=== PATIENT | female | born 1995 | race Caucasian/White ===

== ENCOUNTER → 2023-08-20 07:39 | Outpatient (REF) | payer BC, SELFPAY | LOC: PNTC 07:39 | PROVIDERS: ATTENDING PHYSICIAN Obstetrics & Gynecology | DX: O09.519 Supervision of elderly primigravida, unspecified trimester (principal); O99.280 Endocrine, nutritional and metabolic diseases complicating pregnancy, unspecified trimester; O99.212 Obesity complicating pregnancy, second trimester | CPT/HCPCS: 36415; 76801; 76813 ==

== ENCOUNTER → 2023-09-16 16:32 | Outpatient (REF) | payer BC, SELFPAY | LOC: PNTC 16:32 | PROVIDERS: ATTENDING PHYSICIAN Obstetrics & Gynecology | DX: O99.210 Obesity complicating pregnancy, unspecified trimester (principal) | CPT/HCPCS: 76805 ==

== ENCOUNTER → 2023-10-15 07:16 | Outpatient (REF) | payer BC, SELFPAY | LOC: PNTC 07:16 | PROVIDERS: ATTENDING PHYSICIAN Obstetrics & Gynecology | DX: O99.210 Obesity complicating pregnancy, unspecified trimester (principal); O99.280 Endocrine, nutritional and metabolic diseases complicating pregnancy, unspecified trimester | CPT/HCPCS: 76811 ==

== ENCOUNTER → 2023-12-10 07:01 | Outpatient (REF) | payer BC, SELFPAY | LOC: PNTC 07:01 | PROVIDERS: ATTENDING PHYSICIAN Obstetrics & Gynecology | DX: O36.0190 Maternal care for anti-D [Rh] antibodies, unspecified trimester, not applicable or unspecified (principal); Z34.90 Encounter for supervision of normal pregnancy, unspecified, unspecified trimester | CPT/HCPCS: 36415; 86850; 86900; 86901 ==

== ENCOUNTER → 2023-12-14 06:49 | Outpatient (REF) | payer BC, SELFPAY | LOC: PNTC 06:49 | PROVIDERS: ATTENDING PHYSICIAN Obstetrics & Gynecology | DX: O99.210 Obesity complicating pregnancy, unspecified trimester (principal); O99.280 Endocrine, nutritional and metabolic diseases complicating pregnancy, unspecified trimester | CPT/HCPCS: 76816; 96372 ==

== ENCOUNTER → 2024-01-11 06:58 | Outpatient (REF) | payer BC, SELFPAY | LOC: PNTC 06:58 | PROVIDERS: ATTENDING PHYSICIAN Obstetrics & Gynecology | DX: O99.210 Obesity complicating pregnancy, unspecified trimester (principal); O99.280 Endocrine, nutritional and metabolic diseases complicating pregnancy, unspecified trimester | CPT/HCPCS: 76816 ==

== ENCOUNTER → 2024-01-21 11:06 | Outpatient (REF) | payer BC, SELFPAY | LOC: PNTC 11:06 | PROVIDERS: ATTENDING PHYSICIAN Student in an Organized Health Care Education/Training Program | DX: O36.8190 Decreased fetal movements, unspecified trimester, not applicable or unspecified (principal) | CPT/HCPCS: 59025; 76815 ==

== ENCOUNTER → 2024-02-09 06:52 | Outpatient (REF) | payer BC, SELFPAY | LOC: PNTC 06:52 | PROVIDERS: ATTENDING PHYSICIAN Obstetrics & Gynecology | DX: O99.210 Obesity complicating pregnancy, unspecified trimester (principal); O99.280 Endocrine, nutritional and metabolic diseases complicating pregnancy, unspecified trimester | CPT/HCPCS: 76816 ==

== ENCOUNTER 2024-02-16 12:09 | Emergency (ER) | payer BC, SELFPAY ==
[2024-02-16] VITALS (7 sets, daily range): BP systolic 123–137; BP diastolic 90–103
--- NOTE | 2024-02-16 12:11 | ED.GENMED ---
ED Provider Triage
<Raysa Fuentes PA-C - Last Filed: 02/16/24 12:21>
-
Patient seen by provider in Triage?: Seen in Triage
28 y/o F 37 weeks and 5 preg
11:45 am sudden onset R peripheral vision loss as well as a blurry wavy line in the center of her R eyeand had trouble speaking
sat down, took her bloodp ressure a few times 122/80
is a RN at [employer]
feels that most symptoms are resolved but she still doesn't feel all the way right
no headache
A medical screening examination has been initiated by a qualified medical provider. Based on the assessment performed at this time, it has been determined that an emergent medical condition may exist and the patient has been informed that further
medical evaluation and possible additional diagnostic testing may be needed.
HPI: This is a medical evaluation conducted in person to initiate diagnostic evaluation and provide initial therapeutics. Please see further documentation by the treating clinician.
GENERAL: Alert , in no apparent distress
ENT: No visible abnormalities
LUNGS: No acute respiratory distress
NEUROLOGICAL: Alert and oriented, cranial nerves intact,, strength intact, no pronator drift
SKIN: Skin intact. No visible changes.
MUSCULOSKELETAL: Moving extremities normally
PSYCH: Normal and appropriate interaction.
d/w ed attending
NIH 0 now
but concernin symptoms with , htn
will call stroke alert.
History of Present Illness
<Raysa Fuentes PA-C - Last Filed: 02/16/24 12:21>
General
Chief Complaint: CVA/TIA Symptoms
Time Seen by Provider: 02/16/24 12:20
<Jennifer Calzada MD - Last Filed: 02/16/24 13:22>
History of Present Illness
History of Present Illness:
Patient is a 28-year-old G2PP0 at 37 weeks presenting to the emergency department with vision changes and word finding difficulties. Patient's last known normal was 11:45 AM. She states that she was at work when she had some blurry vision to the
right eye had some word finding difficulty and some numbness tingling to her right lower extremity. She immediately came to the emergency department. She states that since then her symptoms have resolved. She does have a mild headache on the left
side. No history of migraines. No complications with this . She has received care. Currently at this time patient has no complaints. Stroke alert was called upon patient's arrival given patient's symptoms.
If applicable-neuro sx onset
Time pt last seen normal is known: Yes
Date last time pt seen normal: 02/16/24
Time last time pt seen normal: 11:45
Past History
<Raysa Fuentes PA-C - Last Filed: 02/16/24 12:21>
Past History
ED Past Medical History: None
Social History
Tobacco: Non-smoker
Family History
Family History: Negative Sudden
Phy Exam
<Jennifer Calzada MD - Last Filed: 02/16/24 13:22>
Physical Exam
Physical Exam:
GENERAL: in no acute distress
HEENT: normocephalic, extraocular movements intact, moist oral mucosa
NECK: normal inspection
RESPIRATORY: no respiratory distress, clear to auscultation bilaterally
CARDIOVASCULAR: regular rate and rhythm
ABDOMEN/: gravid, soft, non-distended, non-tender to palpation, no rebound or guarding
EXTREMITIES: non-tender, no edema/swelling
NEUROLOGIC: awake and alert, moves all extremities, NIH 0 please see below
SKIN: warm
Scores
<Jennifer Calzada MD - Last Filed: 02/16/24 13:22>
NIH Stroke Score
Level of Consciousness: 0 - Alert
LOC Questions: 0-Answers both correctly
LOC Commands: 0-Performs both correctly
Best Horizontal Gaze: 0-Normal
Visual Ascencio: 0=Normal, no visual loss
Facial Palsy: 0=Normal, symmetrical
Motor - Right Arm: 0=No drift 10 seconds
Motor - Left Arm: 0=No drift 10 seconds
Motor - Right Le-No drift 5 seconds
Motor - Left Le-No drift 5 seconds
Limb Ataxia: 0-Absent
Sensation: 0-Normal
Best Language: 0-No aphasia
Dysarthria: 0-Normal
Extinction and Inattention: 0-No abnormality
Total Score:: 0
Course
<Raysa Fuentes PA-C - Last Filed: 02/16/24 12:21>
Orders/Labs/Results
Orders:
Orders
02/16/24 12:27
CT HEAD STROKE ALERT W/o Cont Stat
Reason For Exam: stroke alert
02/16/24 12:41
Acetaminophen [Tylenol] 1,000 mg PO NOW STA
02/16/24 12:42
Complete Blood Count/With Diff Urgent
Comprehensive Metabolic Panel Urgent
Magnesium Urgent
Urinalysis Reflex To Culture Urgent
Date Specimen was Collected: 02/16/24
Time Specimen was Collected: 12:56
02/16/24 13:03
Type+Screen Urgent
Vital Signs
Initial and Last Documented VS:
Initial Vital Signs
Temp Pulse Resp BP Pulse Ox
98.4 F 110 16 133/97 100
02/16/24 12:11 02/16/24 12:11 02/16/24 12:11 02/16/24 12:11 02/16/24 12:11
Last Documented Vital Signs
Temp Pulse Resp BP Pulse Ox
98.4 F 110 16 133/97 100
02/16/24 12:11 02/16/24 12:11 02/16/24 12:11 02/16/24 12:11 02/16/24 12:11
<Hamna Zheng, MD - Last Filed: 02/16/24 13:22>
Orders/Labs/Results
Orders:
Orders
02/16/24 12:27
CT HEAD STROKE ALERT W/o Cont Stat
Reason For Exam: stroke alert
02/16/24 12:41
Acetaminophen [Tylenol] 1,000 mg PO NOW STA
02/16/24 12:42
Complete Blood Count/With Diff Urgent
Comprehensive Metabolic Panel Urgent
Magnesium Urgent
Urinalysis Reflex To Culture Urgent
Date Specimen was Collected: 02/16/24
Time Specimen was Collected: 12:56
02/16/24 13:03
Type+Screen Urgent
Vital Signs
Initial and Last Documented VS:
Initial Vital Signs
Temp Pulse Resp BP Pulse Ox
98.4 F 110 16 133/97 100
02/16/24 12:11 02/16/24 12:11 02/16/24 12:11 02/16/24 12:11 02/16/24 12:11
Last Documented Vital Signs
Temp Pulse Resp BP Pulse Ox
98.4 F 110 16 133/97 100
02/16/24 12:11 02/16/24 12:11 02/16/24 12:11 02/16/24 12:11 02/16/24 12:11
<Jennifer Calzada MD - Last Filed: 02/16/24 13:22>
MDM/Problems Addressed
Differential Diagnosis Includes:
Patient is a 28-year-old G2, P0 at 37 weeks presenting to the emergency department with vision changes word finding difficulty and numbness tingling that has now resolved. Patient's initial blood pressure was 133/97. After CT scan her blood
pressure was 137/103. Exam during my evaluation showed NIH of 0 with no deficits. Neurology at bedside evaluating patient. Could be complex migraine. Will proceed with dry CT scan for stroke alert. CT scan of the head with no acute abnormality.
Given patient's hypertension I did discuss with PUBLIC HEALTH STAFF NURSE. Will check preeclampsia labs. Patient will need admission for blood pressure monitoring. Patient continues to remain asymptomatic. Will treat with Tylenol for the headache. We did
consider cerebral venous thrombosis as a possibility however after shared decision making with neurology we will hold off with MRV for now. If any recurrent of symptoms we will touch base with neurology.
<Jennifer Calzada MD - Last Filed: 02/16/24 13:22>
*Critical Care Note
Total Time (30-74mins, 75-104mins- exclusive of procedures): Not Applicable
ED Attending Note
<Raysa Fuentes PA-C - Last Filed: 02/16/24 12:21>
-
Portions of this chart may have been created with voice recognition software.� Occasional wrong word or��sound alike� substitutions may have occurred due to the inherent limitations of voice recognition software.
Discharge Plan
Departure
Patient Disposition: Admit
Date of Disposition: 02/16/24
Time of Disposition: 13:15
Presentation/result/management discussed w/ accepting /DO: NII [place]
Discharge Problem:
Hypertension
Prescriptions:
No Action
norethindrone ac-eth estradiol [ (21)] 1 EACH tablet
1 tab PO DAILY
Interventions
Interventions:
*Risk Screen - Suicide Last Done: 02/16/24 12:11
*General Assessment Last Done: 02/16/24 12:11
*Neglect/Abuse Screening Last Done: 02/16/24 12:11
ED- Fall Risk Assessment Last Done: 02/16/24 12:30
ED- Pulmonary Assessment Last Done: 02/16/24 12:30
ED- Neurological Assessment Last Done: 02/16/24 12:30
ED- Cardiac Assessment Last Done: 02/16/24 12:30
Discharge Date and Time
Print Language: TRISTANIAN
[2024-02-16 12:30] LABS: Glucose - Point of Care 86 mg/dl (70-99)
--- NOTE | 2024-02-16 12:46 | CON.NEURO4 ---
Addendum entered and electronically signed by Kannan Rincon MD 02/16/24 15:15:
Studies reviewed.
I have personally examined the patient. I reviewed and agree with the CONCRETE PIPE MAKER's Note.
My addenda:
Awake, alert, interactive. No acute distress.
Speech intact.
Follows 2-step requests w/o difficulty. No tremor.
Extra-ocular movements grossly intact.
Facial movements full and symmetric. Hearing intact to normal conversational volume.
Normal UE movements bilaterally.
Neck: full ROM.
Chest: no dyspnea
Heart: no JVD
Ext: (-) Clubbing, (-) Cyanosis, (-) Edema
IMPRESSIONS/RECOMMENDATIONS:
Abrupt onset of left-sided head pain, speech changes, right peripheral vision changes, right leg weakness with relative hypertension.
Differential diagnosis includes preeclampsia, migraine with aura. Less likely to be associated with cerebral venous thrombosis especially in light of an absence of potential causes and absence of abnormal findings on examination
Consult obstetrics
Would attempt to achieve goal of normotension
Provide acetaminophen for headache control although head discomfort has resolved at this time
Consider MRI imaging of the brain with MR venogram should the patient have recurrent discomfort in the head and return of subjective findings
D/W patient
All questions answered.
Will continue to follow pending results.
Original Note:
Consultation - Neurology 4
-
CONSULTING PHYSICIAN: Dr. Jermaine Rincon
REFERRING PHYSICIAN:stroke alert
DICTATED BY: XOCHITL Torre
DATE/TIME OF REQUEST: 02/16/2024
DATE/TIME OF CONSULTATION: 02/16/2024
Reason for Consultation: stroke alert
History of Present Illness: This is a 28-year-old, 37-week patient with no significant past medical history who presented to the hospital with acute onset in change in speech and right peripheral vision blurring. She reports symptom onset
was 1145. She woke up in her usual state of health. 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 She does admit to a mild left posterior headache. She also reported
some right leg weakness. She states symptoms have all now resolved. Headache was pressure-like and 2-3 out of 10 in intensity. She denies any history of significant headaches or migraines. In the ER she was noted to be hypertensive.
Past Medical History: Depression
Surgical History: [place] teeth removal
Family History: Father colon cancer, mother colon cancer
Social History: Patient currently works does not smoke, Lives with family
Allergies: No known drug allergies
Home Medications: See below
Review of Symptoms:
Patient denies any fever, headache, chest pain, shortness of breath, GI or symptoms.
Vital Signs:
See below
Physical Exam:
The patient is afebrile, heart sounds S1 and S2, No dyspnea
NIH Stroke Scale:
I performed the NIH stroke scale on the patient on 02/16/2024 1230, NIHSS 0
Neurologic Examination:
The patient is awake, alert and oriented x 3. She is able to follow commands and answer questions appropriately. There is no aphasia or dysarthria. On cranial nerve assessment, pupils are 3 mm bilateral, round and reactive to light and
accommodation. Visual kaur are full. Extraocular movements are intact. Facial sensations are intact and bilaterally symmetrical, there is no facial asymmetry. Hearing is intact bilaterally to normal conversation volume. Tongue palate and uvula are
midline. Sternocleidomastoid strengths are full bilaterally. Motor strengths are 5/5 bilateral upper and lower extremities on medical research [place] scale. There is no drift or involuntary movement noted. Deep tendon reflexes are 2+ bilateral
upper and lower extremities and Babinski is absent bilaterally. Sensation of light touch intact and bilaterally symmetrical. There was no extinction noted on double simultaneous stimulation. Coordination is intact by finger to nose bilaterally.
Lab Results: pending
Neuro Imaging: CT head-No acute intracranial abnormality.
Impression:
KYREE BOB is a 28 year old F who has presented to the hospital with Speech changes and mild headache.
Differentials for the patient's presentation include:
-Elevated blood pressure/possible preeclampsia
-Complex migraine/headache
-Not likely stroke or venous sinus thrombosis
Recommendations:
-CT head completed and reviewed
-Consultation to FILTER TANK TENDER HELPER
-Continue to monitor neurologic status
-Neurochecks per unit guidelines
-Monitor blood pressure closely
-Tylenol as needed for headache
-Will have low threshold for MRI brain/MRV. Please contact neurology with any changes in neurologic status
Discussed patient care with ER staff both nursing and physician, neurologist Dr. Rincon, and patient.
Vital Signs / Labs
-
Vital Signs and Labs:
Temp Pulse Resp BP Pulse Ox
98.4 F 110 16 133/97 100
02/16/24 12:11 02/16/24 12:11 02/16/24 12:11 02/16/24 12:11 02/16/24 12:11
[2024-02-16] MEDS: TYLENOL 1000 MG PO (12:54)
[2024-02-16 13:29] LABS: % Basophils 0.4 % (0-2); % Eosinophils 0.4 % (0-6); % Immature Granulocytes 0.5 % (0-0.5); % Lymphocytes 24.4 % (20.5-51.1); % Monocytes 5.6 % (1.7-9.3); % Neutrophils 68.7 % (42.2-75.2); Absolute Immature Granulocytes 0.1 10^3/uL (0-0.05); Absolute Lymphocytes 2.2 10^3/uL (1.2-3.4); Absolute Monocytes 0.5 10^3/uL (0.1-0.6); Absolute Neutrophils 6.3 10^3/uL (1.4-6.5); Hematocrit 33.3 % (37.0-47.0); Hemoglobin 11.1 g/dL (12.0-16.0); Mean Corp Hgb Conc. 33.3 g/dL (33.0-37.0); Mean Corpuscular Hgb 28.9 pg (27.0-31.0); Mean Corpuscular Volume 86.7 fL (81.0-99.0); Mean Platelet Volume 11.2 fL (7.4-10.4); Nucleated Red Blood Cells % 0 %; Platelet Count 295 10^3/uL (130-400); Red Blood Cell Count 3.84 10^6/uL (4.20-5.40); Red Cell Dist. Width 13.6 % (11.5-14.5); White Blood Cell Count 9.1 10^3/uL (4.8-10.8)
[2024-02-16 13:33] LABS: Urine Albumin Negative (Neg - Trace); Urine Bilirubin Negative (Negative); Urine Character Slightly Cloudy (Clear); Urine Color Yellow; Urine Glucose Negative (Negative); Urine Ketone Negative (Negative); Urine Leukocyte 2+ (Negative); Urine Nitrite Negative (Negative); Urine Occult Blood Negative (Negative); Urine Specific Gravity 1.005 (<1.030); Urine Urobilinogen Negative (Neg - 1+)
[2024-02-16 13:46] LABS: ALT (SGPT) 15 U/L (0-35); AST (SGOT) 30 U/L (14-36); Albumin 3.8 g/dl (3.5-5.0); Alkaline Phosphatase 154 U/L (38-126); Blood Urea Nitrogen 8 mg/dl (7-17); Calcium 9.5 mg/dl (8.4-10.2); Carbon Dioxide 19 mmol/L (22-30); Chloride 105 mmol/L (98-107); Glucose 93 mg/dl (70-99); Magnesium 1.5 mg/dl (1.6-2.3); Potassium 4.5 mmol/L (3.5-5.1); Sodium 136 mmol/L (135-145); Total Bilirubin 0.3 mg/dl (0.2-1.3); Total Protein 6.6 g/dl (6.3-8.2); eGFR > 60.00
[2024-02-16 13:55] LABS: Urine Squamous Cell >30 /LPF (Few); Urine Urothelial Cell 0-2 /LPF (FEW)
[2024-02-16 13:56] LABS: Urine Bacteria Many (Negative); Urine White Cell 26-30 /HPF (0-5)
[2024-02-16 16:04] LABS: Protein/creatinine Ratio 0.7; Urine Protein 15 mg/dl
== END 2024-02-16 14:30 | disposition still patient (30) ==
LOC: EMR 12:09
PROVIDERS: EMERGENCY PHYSICIAN Student in an Organized Health Care Education/Training Program; FAMILY PHYSICIAN Internal Medicine
DX: O10.913 Unspecified pre-existing hypertension complicating pregnancy, third trimester (principal); Z3A.37 37 weeks gestation of pregnancy; Z80.0 Family history of malignant neoplasm of digestive organs
CPT/HCPCS: 70450; 80053; 81003; 81015; 82570; 82962; 83735; 84156; 85025; 86850; 86870; 86900; 86901; 87086; 99284

== ENCOUNTER 2024-02-16 14:16 | Inpatient (IN) | payer BC, SELFPAY ==
[2024-02-16 16:01] VITALS: BP 114/68; BMI 32.9
[2024-02-16] MEDS: CYTOTEC 25 MICROGRAM VAG (21:59)
[2024-02-17] MEDS: CYTOTEC PO ×2 (00:27→06:17)
[2024-02-17] MEDS: CYTOTEC 50 MICROGRAM PO (02:00)
--- NOTE | 2024-02-17 04:01 | DOWNTIME ---
There was a [employer] Client Client Consultant Downtime on 02/17/2024 from 0100 to 02/17/2024 at 0350. Downtime documentation of patient's care, including medication administrations, has been reconciled in the electronic record per guidelines. Refer to the
patient's paper chart under the miscellaneous tab to see printed paper medication records and downtime forms.
[2024-02-17] MEDS: SYNTHROID 50 MCG PO (06:14)
[2024-02-17] MEDS: LR 1000 IV (06:31)
[2024-02-17] MEDS: SUBLIMAZE 100 MCG EPIDURAL (07:28)
[2024-02-17] MEDS: FENTANYL/BUPIVACAINE 100 EPIDURAL ×2 (07:28→15:44)
[2024-02-17] MEDS: PITOCIN 30 UNITS/NSS 500 ML IV (11:08)
[2024-02-18 05:21] LABS: % Basophils 0.4 % (0-2); % Eosinophils 0.1 % (0-6); % Immature Granulocytes 0.7 % (0-0.5); % Lymphocytes 15.2 % (20.5-51.1); % Monocytes 8.4 % (1.7-9.3); % Neutrophils 75.2 % (42.2-75.2); Absolute Basophils 0.1 10^3/uL (0-0.2); Absolute Immature Granulocytes 0.1 10^3/uL (0-0.05); Absolute Lymphocytes 2.3 10^3/uL (1.2-3.4); Absolute Monocytes 1.3 10^3/uL (0.1-0.6); Absolute Neutrophils 11.3 10^3/uL (1.4-6.5); Hematocrit 32.8 % (37.0-47.0); Hemoglobin 10.6 g/dL (12.0-16.0); Mean Corp Hgb Conc. 32.3 g/dL (33.0-37.0); Mean Corpuscular Hgb 28.6 pg (27.0-31.0); Mean Corpuscular Volume 88.4 fL (81.0-99.0); Mean Platelet Volume 11.6 fL (7.4-10.4); Nucleated Red Blood Cells % 0 %; Platelet Count 261 10^3/uL (130-400); Red Blood Cell Count 3.71 10^6/uL (4.20-5.40)
[2024-02-18 05:37] LABS: ALT (SGPT) 14 U/L (0-35); AST (SGOT) 29 U/L (14-36); Albumin 3.2 g/dl (3.5-5.0); Alkaline Phosphatase 140 U/L (38-126); Blood Urea Nitrogen 4 mg/dl (7-17); Calcium 8.8 mg/dl (8.4-10.2); Carbon Dioxide 20 mmol/L (22-30); Chloride 108 mmol/L (98-107); Estimated Creatinine Clearance > 125 ml/min; Glucose 74 mg/dl (70-99); Potassium 4.3 mmol/L (3.5-5.1); Sodium 137 mmol/L (135-145); Total Bilirubin 0.3 mg/dl (0.2-1.3); Total Protein 5.9 g/dl (6.3-8.2); eGFR > 60.00
[2024-02-18] MEDS: SYNTHROID 50 MCG PO (05:49)
[2024-02-18] MEDS: MOTRIN 600 MG PO ×2 (09:25→15:59)
[2024-02-18] MEDS: RHOGAM 300 MCG IM (10:03)
[2024-02-18] MEDS: PRENATAL PLUS 1 TABLET PO (17:27)
[2024-02-19] MEDS: SYNTHROID 50 MCG PO (05:56)
[2024-02-19] MEDS: MOTRIN 600 MG PO (13:26)
== END 2024-02-19 13:54 | disposition home or self-care (01) | DRG 807 ==
LOC: LDRP 14:16
PROVIDERS: Obstetrics & Gynecology; ADMITTING PHYSICIAN Obstetrics & Gynecology
PROC: 3E0P7VZ Introduction of Hormone into Female Reproductive, Via Natural or Artificial Opening (ICD-10-PCS; 2024-02-16)
PROC: 10E0XZZ Delivery of Products of Conception, External Approach (ICD-10-PCS; 2024-02-17)
PROC: 0KQM0ZZ Repair Perineum Muscle, Open Approach (ICD-10-PCS; 2024-02-17)
PROC: 0UQMXZZ Repair Vulva, External Approach (ICD-10-PCS; 2024-02-17)
PROC: 3E0234Z Introduction of Serum, Toxoid and Vaccine into Muscle, Percutaneous Approach (ICD-10-PCS; 2024-02-18)
DX: O14.04 Mild to moderate pre-eclampsia, complicating childbirth (principal); Z37.0 Single live birth; R47.81 Slurred speech; Z3A.37 37 weeks gestation of pregnancy; H53.9 Unspecified visual disturbance; O76 Abnormality in fetal heart rate and rhythm complicating labor and delivery; O69.81X0 Labor and delivery complicated by cord around neck, without compression, not applicable or unspecified; N97.9 Female infertility, unspecified; O99.284 Endocrine, nutritional and metabolic diseases complicating childbirth; O70.1 Second degree perineal laceration during delivery; O71.82 Other specified trauma to perineum and vulva; E28.2 Polycystic ovarian syndrome; O99.02 Anemia complicating childbirth; D64.9 Anemia, unspecified; E03.9 Hypothyroidism, unspecified; Z23 Encounter for immunization
CPT/HCPCS: 88307; 70450; 80053; 81003; 81015; 82570; 82962; 83735; 84156; 85025; 85461; 86850; 86870; 86900; 86901; 87086; 99284; J2790